=== PATIENT | male | born 1970 | race American Indian/Alaskan Native ===

== ENCOUNTER 2021-07-28 06:05 | Emergency (ER) | payer SELFPAY ==
[2021-07-28 06:27] VITALS: BP 138/91
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
[2021-07-28] MEDS ORDERED: IBUPROFEN 800 MG TAB PO ONE (06:45)
== END 2021-07-28 07:24 | disposition home or self-care (01) ==
LOC: ED 06:05
DX: S00.83XA Contusion of other part of head, initial encounter (principal); I10 Essential (primary) hypertension; F17.200 Nicotine dependence, unspecified, uncomplicated; Z72.89 Other problems related to lifestyle; V89.2XXA Person injured in unspecified motor-vehicle accident, traffic, initial encounter; Y93.89 Activity, other specified; Y92.488 Other paved roadways as the place of occurrence of the external cause; Y99.8 Other external cause status
CPT/HCPCS: 99282